=== PATIENT | female | born 1995 | race African-American/Black ===

== ENCOUNTER → 2024-03-25 10:20 | Outpatient (CLI) | payer SELFPAY ==
--- NOTE | 2024-03-25 | DI.MG.S_ITS ---
BILATERAL DIGITAL DIAGNOSTIC MAMMOGRAM 3D/2D: 03/25/2024 CLINICAL: Left breast lump. No prior exams were available for comparison. The breasts are heterogeneously dense, which may obscure small masses (category c / 51-75% glandular tissue). There is a 2.1 cm oval mass with a microlobulated margin in the left breast at 4 o'clock middle depth. This correlates as palpated. No other significant masses, calcifications, or other findings are seen in either breast. IMPRESSION: INCOMPLETE: NEED ADDITIONAL IMAGING EVALUATION The 2.1 cm oval mass in the left breast is indeterminate. An ultrasound is recommended for further evaluation and is scheduled to immediately follow this examination. Based on the Tyrer Cuzick model (a risk assessment model) the patient's lifetime risk is 10.5% and her 10 year risk is 0.3%. According to the ACR, ACS, and NCCN guidelines, an annual breast MRI exam along with mammogram is recommended if the patient's lifetime risk is 20% or greater. This exam was interpreted at Station ID: [id number]. NOTE: For mammograms, a report in lay terms will be sent to the patient. Approximately 15% of breast malignancies will not be visualized mammographically. In the management of a palpable breast mass, a negative mammogram must not discourage biopsy of a clinically suspicious lesion. Electronically Signed By: Daria Garcia M.D., Ph.D. eb/:03/25/2024 13:27:08 letter sent: Additional Imaging Needed ACR BI-RADS Category 0: Incomplete: Need Additional Imaging Evaluation
--- NOTE | 2024-03-25 | DI.US.S_ITS ---
LIMITED ULTRASOUND OF LEFT BREAST AND AXILLA: 03/25/2024 CLINICAL: Palpable left breast lump. Comparison is made to exam dated: 03/25/2024 mammogram - [facility]. Color flow and real-time ultrasound of the left breast 4 o'clock, and axilla regions were performed. Castelan scale images of the real-time examination were reviewed. There is a 1.8 cm x 1.4 cm x 1.7 cm oval mass with an angular margin in the left breast at 4 o'clock, 6 cm from the nipple. This oval mass is hypoechoic. This correlates as palpated and with mammography findings. There are two abnormal level 1 lymph nodes in the axilla with thickened cortex. IMPRESSION: SUSPICIOUS 1) Left breast 1.8 cm oval mass at 4 o'clock position corresponding to area of palpable concern. Finding is suspicious. Recommend ultrasound guided core biopsy. 2) Two morphologically abnormal left axillary lymph nodes with thickened cortices. Findings are suspicious. Recommend ultrasound guided core biopsy of one of the lymph nodes. Findings and recommendations were discussed with the patient by Dr. Ramirez during today's examination. This exam was interpreted at Station ID: [id number]. Electronically Signed By: Daria Garcia M.D., Ph.D. eb/:03/25/2024 13:43:23 letter sent: Biopsy Required ACR BI-RADS Category 4C: Suspicious
== END ==
LOC: US 10:22
PROVIDERS: Referring Provider Family Medicine; Visit Provider Family Medicine
DX: N63.23 Unspecified lump in the left breast, lower outer quadrant (principal); R92.333 Mammographic heterogeneous density, bilateral breasts; R92.8 Other abnormal and inconclusive findings on diagnostic imaging of breast; R59.0 Localized enlarged lymph nodes
CPT/HCPCS: 76642; 77066; G0279

== ENCOUNTER → 2024-05-13 | Outpatient (CLI) | payer SELFPAY ==
--- NOTE | 2024-05-13 | DI.MG.S_ITS ---
UNILATERAL LEFT DIGITAL DIAGNOSTIC MAMMOGRAM 3D/2D POST-PROCEDURE IMAGING FOR MARKER PLACEMENT: 05/13/2024 CLINICAL: Post left breast ultrasound biopsy, clip placment imaging. Comparison is made to exams dated: 03/25/2024 ultrasound and 03/25/2024 mammogram - [facility]. The breasts are heterogeneously dense, which may obscure small masses (category c / 51-75% glandular tissue). There is a marker clip in the appropriate position in the left breast at 4 o'clock middle depth. IMPRESSION: POST PROCEDURE MAMMOGRAM FOR MARKER PLACEMENT There was a successful marker clip placement in the left breast middle depth. Based on the Tyrer Cuzick model (a risk assessment model) the patient's lifetime risk is 10.5% and her 10 year risk is 0.3%. According to the ACR, ACS, and NCCN guidelines, an annual breast MRI exam along with mammogram is recommended if the patient's lifetime risk is 20% or greater. This exam was interpreted at Station ID: [id number]. NOTE: For mammograms, a report in lay terms will be sent to the patient. Approximately 15% of breast malignancies will not be visualized mammographically. In the management of a palpable breast mass, a negative mammogram must not discourage biopsy of a clinically suspicious lesion. Electronically Signed By: Zafar Choi M.D. crm/:05/21/2024 09:23:44 ACR BI-RADS Category Post-Procedure Mammogram for Marker Placement
--- NOTE | 2024-05-13 07:50 | DI.US.S_ITS ---
ULTRASOUND GUIDED BIOPSY LEFT BREAST USING VACUUM DEVICE: 05/13/2024 CLINICAL: LT BREAST MASS 04:00 4CMFN. PATIENT CONSENT: Risks (minor bleeding, infection, vasovagal reaction and repeat procedure), benefits and alternatives were explained to the patient and written informed consent was obtained. Correlation is made to exams dated: 05/13/2024 mammogram, 03/25/2024 ultrasound, and 03/25/2024 mammogram - [facility]. An ultrasound guided biopsy using real-time ultrasound was performed for the 1.8 cm x 1.4 cm x 1.7 cm mass located in the left breast at 4 o'clock posterior depth 6 cm from the nipple. The skin was prepped in the usual manner. A biopsy needle was placed adjacent to the abnormality under ultrasound guidance. Once the needle was documented to be in the correct location, a specimen was obtained using the Mammotome biopsy system. The specimen was sent to the laboratory for pathological analysis. IMPRESSION: ULTRASOUND GUIDED BIOPSY MALIGNANT Ultrasound guided biopsy of the 1.8 cm x 1.4 cm x 1.7 cm mass in the left breast posterior depth was successful. Pathology indicates malignant invasive mammary carcinoma (IMC). Pathology results are concordant with imaging findings. A surgical/oncologic consultation is recommended. This exam was interpreted at Station ID: [id number]. Zafar Rodriguez M.D. crm,aty/:05/21/2024 21:12:12
--- NOTE | 2024-05-13 10:12 | PATH_ITS ---
[facility] Accession Number: [id number] No. of containers..01 Tissue . 01 Material submitted: . breast - LT BREAST 04:00 [id number] . 01 Diagnosis: LEFT BREAST AT 4 O'CLOCK, 4 CM FROM NIPPLE, BIOPSY: Invasive carcinoma of the breast. Please see Case Summary below. . CASE SUMMARY Specimen Procedure: Not specified. Specimen laterality: Left. . Tumor Tumor site: Lower outer quadrant (4 o'clock). Distance from nipple: 4 cm. 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 . Histologic grade Glandular/tubular differentiation: Score 3 of 3. Nuclear pleomorphism: Score 3 of 3. Mitotic rate: Score 3 of 3. Overall grade: Grade 3 (score 9/9). . Ductal carcinoma in situ: Not definitely identified. Lymphovascular invasion: Not definitely identified. Microcalcifications: Not identified. . Biomarker studies: Please see Microscopic Description. MRV 05/19/2024 0841 Local . 01 Comment: This case was also reviewed by Dr. Yoana Carver (Julie), who agrees with the interpretation. . Dr. Saritha Patel discussed results with Dr. Sraabia on 05-19-24 at approximately 8:18 a.m. . 01 Electronically signed: . Saritha Patel MD, Pathologist NPI- [id number] . 01 Gross description: . Received in formalin with two patient identifiers and left breast 4 o'clock, are multiple yellow to aguirre soft tissue fragments admixed with hemorrhagic material aggregating to 2.5 x 2.2 x 0.4 cm. Filtered and submitted in A1. . Fixation: The specimen was removed on 05/13/2024 at 1013. Time in formalin not provided. Cold ischemic time cannot be calculated. Total fixation time is approximately 30 hours. ([id number]) /MRV 05/14/2024 1246 Local . 01 Microscopic: . An immunohistochemistry panel is performed to further evaluate the cells of interest. The control stains show appropriate reactivity. . RESULTS: VALERIE: Positive. E-cadherin: Positive. GATA3: Positive. CD45: Negative. Melan-A: Negative. P63: Absent in region of interest, supports invasive tumor. Vimentin: Rare cells positive. . This immunohistochemistry profile supports a neoplasm of breast origin with ductal differentiation. The findings mitigate against a tumor of melanocytic, stromal, or lymphoid origin. . Predictive marker immunohistochemical studies are performed on block A1 with the invasive carcinoma showing the following results (internal control tissue and control slides stained appropriately): . Estrogen receptor (SP1): Negative. Progesterone receptor (1E2): Negative. Her2 (4B5): Negative at 1+ . . Internal controls for ER and DC are positive. Cold ischemic time is not provided. The scoring criteria for breast biomarkers by immunohistochemistry is based on the ASCO/CAP guidelines (Lyric AC et al, J Clin Oncol: 2017Dec 10;36(20):9904-0619 and Da Silva ME et al, Arch Pathol Lab Med: 2009;134(6):907-22). Deparaffinized sections of formalin fixed tissue (along with appropriate positive controls) are incubated with the above antibody(s). Using the automated [place] stainer, tissue is incubated with the designated antibody which is then localized by a non-biotin, dual polymer detection system. The external controls are reviewed for appropriate reactivity and found to be adequate. Results on the target cell population are indicated above. These tests have not been validated on decalcified tissue. This test was developed and the performance characteristics were validated by [facility]. It has not been cleared or approved by the U.S. Food and Drug Administration. . 01 Pathologist provided ICD-10: N63.20, C50.912 . 01 CPT . 782647, O30796, E52275, 371049, 461007, [id number] Specimen Comment: A courtesy copy of this report has been sent to [phone] Performed at: [address] [address], [place], [place] [id number] MD Danny Hernandez MD Phone: [phone]
== END ==
PROVIDERS: Referring Provider Family Medicine; Visit Provider Family Medicine
DX: C50.512 Malignant neoplasm of lower-outer quadrant of left female breast (principal); R92.333 Mammographic heterogeneous density, bilateral breasts; Z17.1 Estrogen receptor negative status [ER-]
CPT/HCPCS: 19083; 77065